=== PATIENT | female | born 1940 | race Caucasian/White ===

== ENCOUNTER 2019-06-15 12:27 | Observation (INO) | payer OTHER ==
[2019-06-15] MEDS ORDERED: NA CHLORIDE 0.9% 1,000 ML ONE (16:01)
[2019-06-15 16:54] LABS: Protime INR 1.19
[2019-06-15 16:55] LABS: Absolute Lymphocytes (CBC) 1.1 K/uL (0.7-4.9); Basophils % 0.4 % (0-1.3); Hematocrit 39.5 % (36.0-45.0); Lymphocytes % 14.1 % (15.3-44.8); MPV 8.3 fL (7.6-11.3); RBC Red Blood Cell Count 4.55 M/uL (3.86-4.86)
--- NOTE | 2019-06-15 16:56 | EKG ---
Test Date: 2019-06-15 Test Time: 16:11:09 [place]: RAMON MEASUREMENT RESULTS: Intervals: Rate: 95 PA: QRSD: 134 QT: 362 QTc: 454 [place]: P: PA: QRS: 28 T: -34 INTERPRETIVE STATEMENTS: Atrial fibrillation with premature ventricular or aberrantly conducted complexes Right bundle branch block T wave abnormality, consider inferior ischemia or digitalis effect Abnormal ECG No previous ECG available for comparison Electronically Signed On 06-15-19 16:55:22 CDT by Nahum Marcial
--- NOTE | 2019-06-15 17:01 | RAD REPORT ---
EXAM DESCRIPTION: RAD - Chest Single View - 06/15/2019 4:46 pm CLINICAL HISTORY: COUGH Chest pain. COMPARISON: No comparisons FINDINGS: Portable technique limits examination quality. The lungs are grossly clear. The heart is upper limit of normal in size. No displaced fractures.Aorti c atherosclerosis. IMPRESSION: No acute intrathoracic process suspected.
[2019-06-15 17:09] LABS: ALT/SGPT 18 U/L (12-78); AST/SGOT 22 U/L (15-37); Albumin 2.9 g/dL (3.4-5.0); Alkaline Phosphatase 146 U/L (45-117); BUN Blood Urea Nitrogen 91 mg/dL (7-18); Bicarbonate 22 mmol/L (21-32); Bilirubin Direct 0.3 mg/dL (0-0.2); Bilirubin Total 0.7 mg/dL (0.2-1.0); Glucose Level 84 mg/dL (74-106); Lipase 319 U/L (73-393); Magnesium 2.6 mg/dL (1.8-2.4); NT PRO-BNP 3528 pg/mL (<450); Potassium 3.5 mmol/L (3.5-5.1); Protein, Total 9.1 g/dL (6.4-8.2); Sodium Level 128 mmol/L (136-145); Troponin (Emerg Dept Use Only) < 0.02 ng/mL (0.0-0.045)
--- NOTE | 2019-06-15 17:30 | EDPHYS ---
Physician Documentation [facility] Name: Mica Christopher Age: 79 yrs Sex: Female : 1940 Arrival Date: 06/15/2019 Time: 12:30 Bed 4 Private MD: ED Physician Jose Luis Ying HPI: 06/15 17:17 This 79 yrs old Female presents to ER via Wheelchair with complaints of raymundo Diarrhea, General Weakness. 17:17 The patient presents to the emergency department with nausea, vomiting, that is raymundo intermittent, abdominal pain. Onset: The symptoms/episode began/occurred 1 week(s) ago. Possible causes: unknown. The symptoms are aggravated by nothing. The symptoms are alleviated by nothing. Associated signs and symptoms: Pertinent positives: nausea, vomiting. Severity of symptoms: At their worst the symptoms were moderate in the emergency department the symptoms are unchanged. Historical: - Allergies: 12:58 PENICILLINS; sv - PMHx: 12:58 COPD; sv - Immunization history:: Adult Immunizations. - Social history:: Smoking status: . - Ebola Screening: : Patient denies travel to an Ebola-affected area in the 21 days before illness onset. - Family history:: not pertinent. ROS: 17:17 Constitutional: Negative for fever, chills, and weight loss, Eyes: Negative for injury, raymundo pain, redness, and discharge, ENT: Negative for injury, pain, and discharge, Neck: Negative for injury, pain, and swelling, Cardiovascular: Negative for chest pain, palpitations, and edema, Respiratory: Negative for shortness of breath, cough, wheezing, and pleuritic chest pain, Back: Negative for injury and pain, : Negative for injury, bleeding, discharge, and swelling, MS/Extremity: Negative for injury and deformity, Skin: Negative for injury, rash, and discoloration, Psych: Negative for depression, anxiety, suicide ideation, homicidal ideation, and hallucinations, Allergy/Immunology: Negative for hives, rash, and allergies, Endocrine: Negative for neck swelling, polydipsia, polyuria, polyphagia, and marked weight changes, Hematologic/Lymphatic: Negative for swollen nodes, abnormal bleeding, and unusual bruising. 17:17 Abdomen/GI: Positive for abdominal pain, nausea, vomiting, diarrhea. 17:17 Neuro: Positive for weakness. Exam: 17:17 Constitutional: This is a well developed, well nourished patient who is awake, alert, raymundo and in no acute distress. Head/Face: Normocephalic, atraumatic. Eyes: Pupils equal round and reactive to light, extra-ocular motions intact. Lids and lashes normal. Conjunctiva and sclera are non-icteric and not injected. Cornea within normal limits. Periorbital areas with no swelling, redness, or edema. ENT: Nares patent. No nasal discharge, no septal abnormalities noted. Tympanic membranes are normal and external auditory canals are clear. Oropharynx with no redness, swelling, or masses, exudates, or evidence of obstruction, uvula midline. Mucous membranes moist. Neck: Trachea midline, no thyromegaly or masses palpated, and no cervical lymphadenopathy. Supple, full range of motion without nuchal rigidity, or vertebral point tenderness. No Meningismus. Chest/axilla: Normal chest wall appearance and motion. Nontender with no deformity. No lesions are appreciated. Cardiovascular: Regular rate and rhythm with a normal S1 and S2. No gallops, murmurs, or rubs. Normal PMI, no JVD. No pulse deficits. Respiratory: Lungs have equal breath sounds bilaterally, clear to auscultation and percussion. No rales, rhonchi or wheezes noted. No increased work of breathing, no retractions or nasal flaring. Back: No spinal tenderness. No costovertebral tenderness. Full range of motion. Female : Normal external genitalia. Skin: Warm, dry with normal turgor. Normal color with no rashes, no lesions, and no evidence of cellulitis. MS/ Extremity: Pulses equal, no cyanosis. Neurovascular intact. Full, normal range of motion. Psych: Awake, alert, with orientation to person, place and time. Behavior, mood, and affect are within normal limits. 17:17 Abdomen/GI: Inspection: abdomen appears normal, Bowel sounds: normal, Palpation: mild abdominal tenderness, in all quadrants, Liver: no appreciated palpable abnormalities, Hernia: not appreciated. Vital Signs: 12:58 BP 102 / 85; Pulse 106; Resp 22; Temp 97.6; Pulse Ox 94% on 2 lpm NC; Weight 71.21 kg; sv Height 5 ft. 0 in. (152.40 cm); 16:27 BP 101 / 71; Pulse 87; Resp 17; Pulse Ox 94% on 2 lpm NC; tw2 17:27 BP 109 / 82; Pulse 87; Resp 17; Pulse Ox 100% on R/A; tw2 18:26 BP 107 / 67; Pulse 88; Resp 16; Pulse Ox 100% ; bp 19:55 BP 104 / 59; Pulse 80; Resp 18; Temp 97.2(TE); Pulse Ox 97% on R/A; ea 12:58 Body Mass Index 30.66 (71.21 kg, 152.40 cm) sv MDM: 15:48 Patient medically screened. [facility] 17:23 Data reviewed: vital signs, nurses notes, lab test result(s), EKG, radiologic studies, raymundo plain films. 06/15 15:50 Order name: Basic Metabolic Panel; Complete Time: 17:20 [facility] 06/15 15:50 Order name: CBC with Diff; Complete Time: 19:29 [facility] 06/15 15:50 Order name: LFT's; Complete Time: 17:20 [facility] 06/15 15:50 Order name: Magnesium; Complete Time: 17:20 [facility] 06/15 15:50 Order name: NT PRO-BNP; Complete Time: 17:20 [facility] 06/15 15:50 Order name: PT-INR; Complete Time: 17:20 [facility] 06/15 15:50 Order name: Troponin (emerg Dept Use Only); Complete Time: 17:20 [facility] 06/15 15:50 Order name: Blood Culture Adult (2) [facility] 06/15 15:50 Order name: Lipase; Complete Time: 17:20 [facility] 06/15 15:50 Order name: CDIFF [facility] 06/15 15:50 Order name: Fecal Leukocyte Stain [facility] 06/15 15:50 Order name: Stool Culture [facility] 06/15 15:50 Order name: Urine Culture [facility] 06/15 16:13 Order name: TSH; Complete Time: 17:20 [facility] 06/15 15:50 Order name: XRAY Chest (1 view); Complete Time: 19:29 [facility] 06/15 15:50 Order name: EKG; Complete Time: 15:53 [facility] 06/15 15:50 Order name: Cardiac monitoring; Complete Time: 15:59 [facility] 06/15 15:50 Order name: EKG - Nurse/Tech; Complete Time: 15:59 [facility] 06/15 15:50 Order name: IV Saline Lock; Complete Time: 16:27 [facility] 06/15 15:50 Order name: Labs collected and sent; Complete Time: 16:27 [facility] 06/15 15:50 Order name: O2 Per Protocol; Complete Time: 15:59 [facility] 06/15 15:50 Order name: O2 Sat Monitoring; Complete Time: 15:59 [facility] 06/15 15:50 Order name: Urine Dipstick-Ancillary (obtain specimen); Complete Time: 17:29 [facility] 06/15 16:40 Order name: Urine Dipstick--Ancillary (enter results); Complete Time: 19:29 md 06/15 17:27 Order name: CT Stone Protocol; Complete Time: 19:29 [facility] 06/15 17:27 Order name: Digoxin; Complete Time: 19:29 [facility] Administered Medications: 16:27 Drug: NS 0.9% 500 ml Route: IV; Rate: bolus; Site: right antecubital; bp 18:26 Follow up: IV Status: Completed infusion; IV Intake: 500ml bp 16:27 Drug: NS 0.9% 1000 ml Route: IV; Rate: 125 ml/hr; Site: right antecubital; bp 20:39 Follow up: Response: No adverse reaction; IV Status: Infusion continued upon admission; ea IV Intake: 300ml 17:32 Drug: NS 0.9% 500 ml Route: IV; Rate: bolus; Site: right antecubital; tw2 18:26 Follow up: IV Status: Completed infusion; IV Intake: 500ml bp Disposition: 06/15/19 17:29 Hospitalization ordered by Ruth Delgadillo for Inpatient Admission. Preliminary diagnosis are Dehydration, Hypotension, Chronic obstructive pulmonary disease, unspecified, Diarrhea, unspecified, Urinary tract infection, site not specified, Weakness. - Bed requested for Telemetry/MedSurg (Inpatient). - Status is Inpatient Admission. ea - Condition is Fair. - Problem is new. - Symptoms have improved. UTI on Admission? Yes Signatures: Dispatcher [employer] Jennifer Terrazas RN RN sv Webb, Martha RN Jose Luis Jennings MD MD cha Wise, Tara, RN RN tw2 Terrie Posey RN RN ea Peltier, Brian, RN RN bp Corrections: (The following items were deleted from the chart) 17:31 17:29 Hospitalization Ordered by Ruth Delgadillo MD for Inpatient Admission. Preliminary raymundo diagnosis is Dehydration; Hypotension; Chronic obstructive pulmonary disease, unspecified; Diarrhea, unspecified; Urinary tract infection, site not specified. Bed requested for Telemetry/MedSurg (Inpatient). Status is Inpatient Admission. Condition is Fair. Problem is new. Symptoms have improved. UTI on Admission? Yes. [facility] 19:15 17:31 06/15/2019 17:29 Hospitalization Ordered by Ruth Delgadillo MD for Inpatient mw Admission. Preliminary diagnosis is Dehydration; Hypotension; Chronic obstructive pulmonary disease, unspecified; Diarrhea, unspecified; Urinary tract infection, site not specified; Weakness. Bed requested for Telemetry/MedSurg (Inpatient). Status is Inpatient Admission. Condition is Fair. Problem is new. Symptoms have improved. UTI on Admission? Yes. [facility] 20:39 19:15 06/15/2019 17:29 Hospitalization Ordered by Ruth Delgadillo MD for Inpatient ea Admission. Preliminary diagnosis is Dehydration; Hypotension; Chronic obstructive pulmonary disease, unspecified; Diarrhea, unspecified; Urinary tract infection, site not specified; Weakness. Bed requested for Telemetry/MedSurg (Inpatient). Status is Inpatient Admission. Condition is Fair. Problem is new. Symptoms have improved. UTI on Admission? Yes. mw
--- NOTE | 2019-06-15 17:30 | ER ---
Nurse's Notes [facility] Name: Mica Christopher Age: 79 yrs Sex: Female : 1940 Arrival Date: 06/15/2019 Time: 12:30 Bed 4 Private MD: Diagnosis: Dehydration;Hypotension;Chronic obstructive pulmonary disease, unspecified;Diarrhea, unspecified;Urinary tract infection, site not specified;Weakness Presentation: 06/15 12:56 Presenting complaint: Sister states diarrhea, generalized weakness, decreased appetite sv x 1 week. Transition of care: patient was not received from another setting of care. Onset of symptoms was May 2019. Risk Assessment: Do you want to hurt yourself or someone else? Patient reports no desire to harm self or others. Care prior to arrival: None. 12:56 Method Of Arrival: Wheelchair sv 12:56 Acuity: BRITTNEY 3 sv 16:28 Initial Sepsis Screen: Does the patient meet any 2 criteria? RR > 20 per min. HR > 90 tw2 bpm. Does the patient have a suspected source of infection? Yes:. Triage Assessment: 12:56 General: Appears in no apparent distress. uncomfortable, Behavior is calm, cooperative, sv appropriate for age. Neuro: Level of Consciousness is awake, alert, obeys commands. Neuro: Reports weakness. Respiratory: Respiratory effort is even, unlabored, Respiratory pattern is regular, symmetrical. GI: Reports diarrhea. Historical: - Allergies: 12:58 PENICILLINS; sv - PMHx: 12:58 COPD; sv - Immunization history:: Adult Immunizations. - Social history:: Smoking status: . - Ebola Screening: : Patient denies travel to an Ebola-affected area in the 21 days before illness onset. - Family history:: not pertinent. Screenin:22 Abuse screen: Denies threats or abuse. Denies injuries from another. Nutritional bp screening: No deficits noted. Tuberculosis screening: No symptoms or risk factors identified. Fall Risk None identified. Assessment: 15:21 General: Appears in no apparent distress. comfortable, Behavior is calm, cooperative, bp appropriate for age. Pain: Denies pain. Neuro: No deficits noted. Cardiovascular: No deficits noted. Respiratory: No deficits noted. GI: No signs and/or symptoms were reported involving the gastrointestinal system. : No signs and/or symptoms were reported regarding the genitourinary system. EENT: No deficits noted. Derm: No deficits noted. Musculoskeletal: No deficits noted. 16:27 Reassessment: Patient appears in no apparent distress at this time. No changes from tw2 previously documented assessment. Patient and/or family updated on plan of care and expected duration. Pain level reassessed. Patient is alert, oriented x 3, equal unlabored respirations, skin warm/dry/pink. 17:27 Reassessment: Patient appears in no apparent distress at this time. No changes from tw2 previously documented assessment. Patient and/or family updated on plan of care and expected duration. Pain level reassessed. Patient is alert, oriented x 3, equal unlabored respirations, skin warm/dry/pink. 18:26 Reassessment: ALL CURRENT ORDERS COMPLETED, ADMIT IN PROCESS. bp 19:15 General: Appears in no apparent distress. Behavior is calm, cooperative, appropriate ea for age. Pain: Denies pain. Neuro: Level of Consciousness is awake, alert, obeys commands, Oriented to person, place, situation. Cardiovascular: Patient's skin is warm and dry. Respiratory: Airway is patent Respiratory effort is even, unlabored, Respiratory pattern is regular, symmetrical. Derm: Skin is dry, Skin is pale, Skin temperature is warm. 20:27 Reassessment: report called to [facility] for room 207. bb 20:35 Reassessment: Patient and/or family updated on plan of care and expected duration. Pain ea level reassessed. Patient is alert, oriented x 3, equal unlabored respirations, skin warm/dry/pink. Pt admitted to second floor, taken via stretcher pt tolerating well. Vital Signs: 12:58 BP 102 / 85; Pulse 106; Resp 22; Temp 97.6; Pulse Ox 94% on 2 lpm NC; Weight 71.21 kg; sv Height 5 ft. 0 in. (152.40 cm); 16:27 BP 101 / 71; Pulse 87; Resp 17; Pulse Ox 94% on 2 lpm NC; tw2 17:27 BP 109 / 82; Pulse 87; Resp 17; Pulse Ox 100% on R/A; tw2 18:26 BP 107 / 67; Pulse 88; Resp 16; Pulse Ox 100% ; bp 19:55 BP 104 / 59; Pulse 80; Resp 18; Temp 97.2(TE); Pulse Ox 97% on R/A; ea 12:58 Body Mass Index 30.66 (71.21 kg, 152.40 cm) sv ED Course: 12:30 Patient arrived in ED. as 12:57 Triage completed. sv 12:58 Arm band placed on. sv 15:17 Anil Strickland, RN is Primary Nurse. bp 15:22 Patient has correct armband on for positive identification. Placed in gown. Bed in low bp position. Call light in reach. Side rails up X2. 15:48 Jose Luis Ying MD is Attending Physician. raymundo 16:14 EKG done, by nuclear medicine tech. reviewed by Jose Luis Ying MD. sm3 16:43 Urine collected: bedpan, yellow \T\ cloudy. dh3 16:48 XRAY Chest (1 view) In Process Unspecified. EDMS 17:28 Ruth Delgadillo MD is Hospitalizing Provider. raymundo 17:48 CT Stone Protocol In Process Unspecified. EDMS 19:00 Report given to ARIANE Avery and ARIANE Hobbs. tw2 19:54 No provider procedures requiring assistance completed. Patient admitted, IV remains in ea place. Administered Medications: 16:27 Drug: NS 0.9% 500 ml Route: IV; Rate: bolus; Site: right antecubital; bp 18:26 Follow up: IV Status: Completed infusion; IV Intake: 500ml bp 16:27 Drug: NS 0.9% 1000 ml Route: IV; Rate: 125 ml/hr; Site: right antecubital; bp 20:39 Follow up: Response: No adverse reaction; IV Status: Infusion continued upon admission; ea IV Intake: 300ml 17:32 Drug: NS 0.9% 500 ml Route: IV; Rate: bolus; Site: right antecubital; tw2 18:26 Follow up: IV Status: Completed infusion; IV Intake: 500ml bp Intake: 18:26 IV: 500ml; Total: 500ml. bp 18:26 IV: 500ml; Total: 1000ml. bp 20:39 IV: 300ml; Total: 1300ml. ea Outcome: 17:29 Decision to Hospitalize by Provider. raymundo 19:54 Instructed on the need for admit. ea 20:04 Admitted to Tele via stretcher, room 207, with chart, Report called to Allison THAKKAR bb 20:04 Condition: stable 20:39 Patient left the ED. ea Signatures: Dispatcher [employer] Jennifer Terrazas, RN RN Jose Luis Mcgrath MD MD cha Martinez, Amelia as Ballard, Brenda RN RN Phyllis Ortega RN RN [facility] Amparo Arzatenna [facility] Terrie Posey RN Anil Marx ea, RN Anabelle Crodova 3 Corrections: (The following items were deleted from the chart) 18: 18:26 Reassessment: ALL CURRENT ORDERS COMPLETED, RESULTS PENDING FOR DISPO bp bp : 20:04 Reassessment: report called to Terrie THAKKAR for room 207 bb bb 20:28 20:04 Admitted to Tele via stretcher, room 207, with chart, Report called to Terrie THAKKAR bbbb
[2019-06-15] MEDS ORDERED: NA CHLORIDE 0.9% 500 ML ONE (17:33)
[2019-06-15 17:49] LABS: Urine Blood TRACE (NEG); Urine Glucose NEGATIVE (NEG); Urine Protein 1+ (NEG); Urine Specific Gravity 1.015 (1.005-1.030)
--- NOTE | 2019-06-15 18:06 | RAD REPORT ---
EXAM DESCRIPTION: CT - Stone Protocol - 06/15/2019 5:45 pm CLINICAL HISTORY: Flank pain. ABD PAIN COMPARISON: No comparisons TECHNIQUE: Axial images were obtained without oral or IV contrast. Lack of contrast limits solid org an and vascular assessment. The [id number] spans the entirety of the system partially obscuring uppermost abdomen and lung bases. Coronal reformatted images were obtained and reviewed. All CT scans are performed using dose optimization technique as appropriate and may include automated exposure control or mA/KV adjustment according to patient size. FINDINGS: The lower lung colon are clear. Small hiatal hernia. Cholecystectomy clips. Liver has a nodular contour compatible with mild cirrhosis.The liver appears normal in size. Pancreat ic parenchyma is incompletely assessed particularly in the region pancreatic head due to lack contras t. The adrenal glands are normal. No pathologic lymphadenopathy in the abdomen or pelvis. No urinary tract stones or obstructive uropathy. Infrarenal abdominal aortic aneurysm is present louisa uring 4.9 cm in maximum dimension. No bowel obstruction, free air, free fluid or abscess. The appendix is not identified as a discrete s tructure, however, no secondary findings of appendicitis are identified. Prominent degenerative change in the lumbar spine. IMPRESSION: No urinary tract stones or obstructive uropathy. Liver cirrhosis. 4.9 cm infrarenal abdominal aortic aneurysm.
--- NOTE | 2019-06-15 19:56 | P.HP ---
Certification for Inpatient Patient admitted to: Observation With expected LOS: <2 Midnights Patient will require the following post-hospital care: Home Health Services Practitioner: I am a practitioner with admitting privileges, knowledge of patient current condition, hospital course, and medical plan of care. Services: Services provided to patient in accordance with Admission requirements found in Title 42 Section 412.3 of the Code of Federal Regulations Patient History Date of Service: 06/15/19 Primary Care Provider: Roddy Lopez NP Reason for admission: Diarrhea History of Present Illness: 79-year-old female presented to the emergency room with worsening diarrhea. Patient came to the ER with worsening diarrhea. She reports that this started about 1 week ago. Since that time she has not been able to eat appropriately. She has had poor oral intake. She denies any fever, chills. She denies any abdominal pain. She has not been on any recent antibiotics. Patient feels dehydrated. Patient with underlying COPD, hypertension, chronic atrial fibrillation not on chronic anti coagulation therapy and tobacco abuse. Patient came to the ER for further evaluation. In the ER patient evaluated. Blood pressure appears stable. White count 7.7, hemoglobin 14.3. Platelet count of 253. Sodium 128, potassium 3.5, BUN of 91, creatinine 2.03 with a GFR of 24. Glucose 84. Magnesium 2.6. Troponin unremarkable. BNP 3528. Tsh within normal range. Lipase unremarkable. Chest x -ray unremarkable. Urinalysis shows evidence of UTI. CT abdomen shows liver cirrhosis with 4.9 infrarenal aortic aneurysm. Patient given IV fluids in the emergency room. Patient admitted for further evaluation and treatment. When I saw the patient ER, family at bedside. Patient appears improved. Patient denies any fever, chills. No significant abdominal pain noted. No prior lab for comparison noted. Patient reports diarrhea was not noted today. Home medications list reviewed: Yes - Past Medical/Surgical History Diabetic: No -: Hypertension -: COPD -: Chronic atrial fibrillation not on chronic anti coagulation therapy -: Tobacco abuse -: Hysterectomy -: Cholecystectomy -: Carpal tunnel Psychosocial/ Personal History: Patient lives with her who has dementia. Patient recently moved from [place] to be closer to family. - Family History Family History: Reviewed- Non-Contributory - Social History Smoking Status: Heavy Tobacco smoker (>10 cigarettes/day) Counseled patient to stop smoking for: less than 10 minutes Smoking therapy provided: Yes Patient receptive to therapy: No Alcohol use: No CD- Drugs: No Caffeine use: No Place of Residence: Home Review of Systems General: Weakness, Malaise, As per HPI Eyes: Unremarkable ENT: Unremarkable Respiratory: Unremarkable Cardiovascular: Unremarkable Gastrointestinal: Diarrhea, As per HPI Genitourinary: Unremarkable Musculoskeletal: Unremarkable Integumentary: Unremarkable Neurological: Unremarkable Lymphatics: Unremarkable Physical Examination - Physical Exam General: Alert, In no apparent distress, Oriented x3, Cooperative HEENT: Atraumatic, Normocephalic, Other (Dry mucous membranes) Neck: Supple, No Thyromegaly Respiratory: Clear to auscultation bilaterally, Normal air movement Cardiovascular: Irregular heart rate/rhythm (Atrial fibrillation, rate controlled) Gastrointestinal: Normal bowel sounds, Soft and benign, Non-distended, No tenderness, No masses, No rebound, No guarding Musculoskeletal: No erythema, No tenderness, No warmth Integumentary: No tenderness/swelling, No erythema, No warmth, No cyanosis, Other (Dry skin noted) Neurological: Normal speech, Normal strength at 5/5 x4 extr, Normal tone, Normal affect - Studies Laboratory Data (last 24 hrs) 06/15/19 16:20: PT 13.9 H, INR 1.19 06/15/19 16:20: WBC 7.7, Hgb 14.3, Hct 39.5, Plt Count 253 06/15/19 16:20: Sodium 128 L, Potassium 3.5, BUN 91 H, Creatinine 2.03 H, Glucose 84, Magnesium 2.6 H, Total Bilirubin 0.7, AST 22, ALT 18, Alkaline Phosphatase 146 H, Lipase 319 Assessment and Plan - Plan Impression: Diarrhea with acute renal injury likely with chronic disease UTI Hypertension Chronic atrial fibrillation not on chronic anti coagulation therapy COPD Tobacco abuse Plan: Diarrhea with acute renal injury likely with chronic disease: Patient will be admitted for further evaluation and treatment. Patient with diarrhea likely related to viral infection. Patient reports no more diarrhea this afternoon. Will need to monitor this closely. Will send stool for O&P and culture. Will also monitor for C diff colitis. Encourage oral intake. Continue IV fluids. Will monitor electrolytes and replace appropriately. Will order physical therapy to assess ambulation tomorrow. Will check renal ultrasound to further evaluate her underlying acute renal injury. Patient likely with underlying chronic renal disease. Will consult nephrology for further recommendation. Patient will be seen by the daytime hospitalist tomorrow. They will continue her care. Anticipate discharge in the next 1-2 days with clinical improvement. UTI: Will send urine for culture. Will start Rocephin. Await urine culture results. Hypertension: Restart metoprolol. Will monitor closely and adjust. Chronic atrial fibrillation not on chronic anti coagulation therapy: Continue with metoprolol. Will check echocardiogram. Will consult cardiology to further evaluate her atrial fibrillation. Patient not on chronic anti coagulation therapy likely related to increased fall risk and bleeding. Will provide DVT prophylaxis-Lovenox. COPD: Will provide COPD medication. Maintain sats above 94%. Tobacco abuse: Will provide Nicoderm patch. Tobacco cessation education provided. Discharge Plan: Home Plan to discharge in: 48 Hours - Advance Directives Does patient have a Living Will: No Does patient have a Durable POA for Healthcare: No - Code Status/Comfort Care Code Status Assessed: Yes (Patient is full code) Time Spent Managing Pts Care (In Minutes): 55
[2019-06-15] MEDS ORDERED: ALBUTEROL 2.5 MG/3 ML NEB SOL NEB PRN (21:45)
[2019-06-15] MEDS ORDERED: ACETAMINOPHEN 500 MG TAB PO PRN (21:45)
[2019-06-15] MEDS ORDERED: IPRATROPIUM BROM 0.5MG/2.5ML NEB PRN (21:45)
[2019-06-15] MEDS ORDERED: ONDANSETRON 4 MG/2 ML VIAL IV PRN (21:45)
[2019-06-15 22:31] VITALS: BMI 26.6
[2019-06-15] MEDS: NA CHLORIDE 0.9% 1,000 ML IV SCH (22:38)
[2019-06-15] MEDS ORDERED: LORAZEPAM 0.5 MG TABLET PO PRN (23:02)
--- NOTE | 2019-06-16 00:27 | P.PN ---
Subjective Date of Service: 06/16/19 Primary Care Provider: oRddy Lopez NP Chief Complaint: Diarrhea Subjective: Other (Patient doing well this morning.) Physical Examination - Vital Signs Temperature: 97.7 F Blood Pressure: 130/90 Pulse: 98 Respirations: 20 Pulse Ox (%): 96 - Physical Exam General: Alert, In no apparent distress, Oriented x3, Cooperative HEENT: Atraumatic Neck: Supple Respiratory: Clear to auscultation bilaterally, Normal air movement Cardiovascular: Normal pulses, Regular rate/rhythm Gastrointestinal: Normal bowel sounds, Soft and benign, Non-distended, No tenderness, No masses, No rebound, No guarding - Studies Laboratory Data (last 24 hrs) 06/15/19 16:20: PT 13.9 H, INR 1.19 06/15/19 16:20: WBC 7.7, Hgb 14.3, Hct 39.5, Plt Count 253 06/15/19 16:20: Sodium 128 L, Potassium 3.5, BUN 91 H, Creatinine 2.03 H, Glucose 84, Magnesium 2.6 H, Total Bilirubin 0.7, AST 22, ALT 18, Alkaline Phosphatase 146 H, Lipase 319 Assessment & Plan Discharge Plan: Home Plan to discharge in: 24 Hours Physician Review Additional Text: Impression: Diarrhea with acute renal injury likely with chronic disease UTI Hypertension Chronic atrial fibrillation not on chronic anti coagulation therapy COPD Tobacco abuse Plan: Diarrhea with acute renal injury likely with chronic disease: Continue with IV fluid hydration. Diarrhea likely viral related. Stool cultures obtained. Recheck lab this morning. If lab significantly improved consider discharge later today. Will have physical therapy assess ambulation. Will order renal ultrasound to evaluate possible underlying chronic renal disease. Nephrology also consulted to further evaluate. Possible discharge in the next 24 hr with clinical improvement. Daytime hospitalist team will continue her care. UTI: Urine culture sent for evaluation. Continue Rocephin. Await urine culture results. Hypertension: Continue home medication metoprolol. Will monitor closely and adjust. Chronic atrial fibrillation not on chronic anti coagulation therapy: Continue with metoprolol. Echocardiogram ordered. Consider cardiology evaluation as an inpatient versus outpatient to further evaluate her atrial fibrillation. Patient not on chronic anti coagulation therapy likely related to increased fall risk and bleeding. Will provide DVT prophylaxis-Lovenox. COPD: Will provide COPD medication. Maintain sats above 94%. Tobacco abuse: Will provide Nicoderm patch. Tobacco cessation education provided. Time Spent Managing Pts Care (In Minutes): 55
[2019-06-16 03:12] VITALS: O2SAT 98
[2019-06-16 05:41] LABS: Absolute Lymphocytes (CBC) 0.8 K/uL (0.7-4.9); Basophils % 0.4 % (0-1.3); Hematocrit 36.4 % (36.0-45.0); Lymphocytes % 13.1 % (15.3-44.8); MPV 7.9 fL (7.6-11.3)
[2019-06-16] MEDS ORDERED: METOPROLOL TAR 25 MG TAB PO SCH (06:00)
[2019-06-16 06:04] LABS: Magnesium 2.1 mg/dL (1.8-2.4); Potassium 3.6 mmol/L (3.5-5.1)
[2019-06-16] MEDS ORDERED: PANTOPRAZOLE 40MG TABLET PO SCH (06:30)
[2019-06-16] MEDS: NA CHLORIDE 0.9% 1,000 ML IV SCH (07:22)
[2019-06-16] MEDS: ARFORMOTEROL TARTRATE 15 MCG/2 ML VIAL.NEB NEB SCH ×2 (08:00)
[2019-06-16] MEDS ORDERED: CEFTRIAXONE 1 GM/NS 50 ML 1 GM/50 ML BAG IV SCH (09:00)
[2019-06-16] MEDS ORDERED: ASPIRIN EC 81 MG TAB PO SCH (09:00)
[2019-06-16] MEDS ORDERED: CEFTRIAXONE/SWI 1gm 1 GM/10 ML SYR IV SCH (09:00)
[2019-06-16] MEDS ORDERED: POTASSIUM CL SA 10 MEQ TAB PO ONE (09:00)
[2019-06-16] MEDS ORDERED: ENOXAPARIN 30 MG/0.3 ML SQ SCH (09:00)
[2019-06-16] MEDS ORDERED: NICOTINE 21 MG/PAT TD SCH (09:00)
--- NOTE | 2019-06-16 11:19 | RAD REPORT ---
EXAM DESCRIPTION: US - Renal Ultrasound-Complete - 06/16/2019 10:25 am CLINICAL HISTORY: . Acute renal injury COMPARISON: None. FINDINGS: The right kidney measures 8 cm with a normal echotexture. The left kidney measures 9 cm with a normal echotexture. Hydronephrosis is not seen. No gross abnormality of the bladder Evaluation was limited secondary to difficulty with patient positioning. IMPRESSION: No gross abnormality displayed
[2019-06-16 14:14] VITALS: BP 115/50; TEMP 98.7
--- NOTE | 2019-06-16 14:39 | P.CNS ---
Date of Consult: 06/16/19 Reason for Consult: MEHREEN , hyponatremia Primary Care Provider: Roddy Lopez NP Chief Complaint: Diarrhea History of Present Illness: A 79 Y/o owman with PMHX of HTN, COPD, Afib pt was sen for diarrhea Fount to have MEHREEN and hyponatremia , which improved on IVF Symptoms now resolved No chest pain, palpitation ,nausea or vomiting Allergies Penicillins Allergy (Verified 06/15/19 21:04) Rash - Past Medical/Surgical History Diabetic: No -: Hypertension -: COPD -: Chronic atrial fibrillation not on chronic anti coagulation therapy -: Tobacco abuse -: Hysterectomy -: Cholecystectomy -: Carpal tunnel Psychosocial/ Personal History: Patient lives with her who has dementia. Patient recently moved from [place] to be closer to family. - Family History Mother Medical History: Cancer Notes: breast - Social History Alcohol use: No CD- Drugs: No Caffeine use: Yes Place of Residence: Home Physical Examination Temp Pulse Resp BP Pulse Ox 98.7 F 74 20 115/50 L 100 06/16/19 12:00 06/16/19 12:00 06/16/19 12:00 06/16/19 12:00 06/16/19 12:00 General: Alert, In no apparent distress HEENT: Atraumatic Neck: Supple, Without JVD or thyroid abnormality Respiratory: Clear to auscultation bilaterally Cardiovascular: No edema, Regular rate/rhythm, Normal S1 S2, No gallops, No rubs , No murmurs Gastrointestinal: Normal bowel sounds, Soft and benign Laboratory Data (last 24 hrs) 06/15/19 16:20: PT 13.9 H, INR 1.19 06/15/19 16:20: WBC 7.7, Hgb 14.3, Hct 39.5, Plt Count 253 06/15/19 16:20: Sodium 128 L, Potassium 3.5, BUN 91 H, Creatinine 2.03 H, Glucose 84, Magnesium 2.6 H, Total Bilirubin 0.7, AST 22, ALT 18, Alkaline Phosphatase 146 H, Lipase 319 - Problems (1) MEHREEN (acute kidney injury) Current Visit: Yes Status: Acute Conclusions/Impression: MEHREEN Due to diarrhea and dehydration resolved hyponatremia Depletional improved on IVF Diarrhea resolved now UTI cont Abx COPD cont inhalers pt is cleared for discharge from nephrology point of view, to follow with nephrology clinic in 2-3 wks and need to preat labs in 1-2 wks
--- NOTE | 2019-06-16 14:51 | P.SSS ---
Patient History Date of Service: 06/16/19 Primary Care Provider: Roddy Lopez NP Reason for admission: Diarrhea History of Present Illness: 79-year-old female presented to the emergency room with worsening diarrhea. Patient came to the ER with worsening diarrhea. She reports that this started about 1 week ago. Since that time she has not been able to eat appropriately. She has had poor oral intake. She denies any fever, chills. She denies any abdominal pain. She has not been on any recent antibiotics. Patient feels dehydrated. Patient with underlying COPD, hypertension, chronic atrial fibrillation not on chronic anti coagulation therapy and tobacco abuse. Patient came to the ER for further evaluation. In the ER patient evaluated. Blood pressure appears stable. White count 7.7, hemoglobin 14.3. Platelet count of 253. Sodium 128, potassium 3.5, BUN of 91, creatinine 2.03 with a GFR of 24. Glucose 84. Magnesium 2.6. Troponin unremarkable. BNP 3528. Tsh within normal range. Lipase unremarkable. Chest x -ray unremarkable. Urinalysis shows evidence of UTI. CT abdomen shows liver cirrhosis with 4.9 infrarenal aortic aneurysm. Patient given IV fluids in the emergency room. Patient admitted for further evaluation and treatment. When I saw the patient ER, family at bedside. Patient appears improved. Patient denies any fever, chills. No significant abdominal pain noted. No prior lab for comparison noted. Patient reports diarrhea was not noted today. Allergies Penicillins Allergy (Verified 06/15/19 21:04) Rash Home Medications: Amox/Clavulanate [Augmentin 500-125 mg Tab] 500 mg PO BID #14 tab 06/16/19 - Past Medical/Surgical History Has patient received pneumonia vaccine in the past: Yes Diabetic: No -: Hypertension -: COPD -: Chronic atrial fibrillation not on chronic anti coagulation therapy -: Tobacco abuse -: Hysterectomy -: Cholecystectomy -: Carpal tunnel Psychosocial/ Personal History: Patient lives with her who has dementia. Patient recently moved from [place] to be closer to family. - Family History Family History: Reviewed- Non-Contributory - Family History Mother -: Cancer Notes: breast - Social History Smoking Status: Heavy Tobacco smoker (>10 cigarettes/day) Alcohol use: No CD- Drugs: No Caffeine use: Yes Place of Residence: Home Review of Systems 10-point ROS is otherwise unremarkable Physical Examination - Vital Signs Temperature: 98.7 F Blood Pressure: 115/50 Pulse: 74 Respirations: 20 Pulse Ox (%): 100 - Physical Exam General: Alert, In no apparent distress HEENT: Atraumatic, PERRLA, Mucous membr. moist/pink, EOMI, Sclerae nonicteric Neck: Supple, 2+ carotid pulse no bruit, No LAD, Without JVD or thyroid abnormality Respiratory: Clear to auscultation bilaterally, Normal air movement Cardiovascular: Regular rate/rhythm, Normal S1 S2 Gastrointestinal: Normal bowel sounds, No tenderness Musculoskeletal: No tenderness Integumentary: No rashes Neurological: Normal gait, Normal speech, Normal strength at 5/5 x4 extr, Normal tone, Normal affect Lymphatics: No axilla or inguinal lymphadenopathy - Studies Laboratory Data (last 24 hrs) 06/15/19 16:20: PT 13.9 H, INR 1.19 06/15/19 16:20: WBC 7.7, Hgb 14.3, Hct 39.5, Plt Count 253 06/15/19 16:20: Sodium 128 L, Potassium 3.5, BUN 91 H, Creatinine 2.03 H, Glucose 84, Magnesium 2.6 H, Total Bilirubin 0.7, AST 22, ALT 18, Alkaline Phosphatase 146 H, Lipase 319 - Diagnosis (Problem(s)) (1) Diarrhea Current Visit: Yes Status: Resolved Qualifiers: Diarrhea type: presumed infectious Qualified Code(s): R19.7 - Diarrhea, unspecified (2) UTI (urinary tract infection) Current Visit: Yes Status: Acute Qualifiers: Urinary tract infection type: acute cystitis Hematuria presence: without hematuria Qualified Code(s): N30.00 - Acute cystitis without hematuria (3) MEHREEN (acute kidney injury) Current Visit: Yes Status: Resolved Treatment Summary: OVerall Patient remained stable while here in the hospital pt was admitted to the hospital after she presented to the ED with Diarrhea and was found to have MEHREEN and UTI. For Diarrhea which was most likely viral related. Stool cultures obtained. negative culture thus far. Diarrhea did resolve after 12 hrs of IV abx and fluids. For MEHREEN pt was placed on IV fluids and Had marked improvement in the Kidney function. Renal US wnl and Nephrology consulted And appreciated Reccs For UTI Urine culture was collected Remained negative thus far. Was started on IV Rocephin. And on DC due to nitrite + on UA pt was given a ppx of augmentin All other chronic condition remained stable - Disposition Condition: GOOD Diet: Regular Activity: Ad annemarie
--- NOTE | 2019-06-17 08:38 | ECHO ---
HEIGHT: 5 ft 0 in WEIGHT: 136 lb 6.4 oz DATE OF STUDY: 06/16/[address]: Ruth Delgadillo MD 2-DIMENSIONAL: YES M.MODE: YES DOPPLER: YES COLOR FLOW: YES TDS: NO PORTABLE: NO DEFINITY: NO BUBBLE STUDY: NO DIAGNOSIS: ATRIAL FIBRILLATION CARDIAC HISTORY: CATHERIZATION: NO SURGERY: NO PROSTHETIC VALVE: NO PACEMAKER: NO MEASUREMENTS (cm) DIASTOLIC (NORMALS) SYSTOLIC (NORMALS) IVSd 1.0 (0.6-1.2) LA Diam 4.4 (1.9-4.0) LVEF 55-60% LVIDd 4.7 (3.5-5.7) LVIDs 3.7 (2.0-3.5) %FS % LVPWd 1.2 (0.6-1.2) Ao Diam 2.8 (2.0-3.7) 2 DIMENSIONAL ASSESSMENT: RIGHT ATRIUM: NORMAL LEFT ATRIUM: DILATED RIGHT VENTRICLE: NORMAL LEFT VENTRICLE: NORMAL TRICUSPID VALVE: NORMAL MITRAL VALVE: MITRAL ANNULAR CALCIFICATION PULMONIC VALVE: NORMAL AORTIC VALVE: SCLEROSIS PERICARDIAL EFFUSION: NONE AORTIC ROOT: NORMAL LEFT VENTRICULAR WALL MOTION: NORMAL DOPPLER/COLOR FLOW: MILD TRICUSPID REGURGITATION. COMMENTS: TECHNICALLY DIFFICULT STUDY. NORMAL OVERALL LEFT VENTRICULAR EJECTION FRACTION 55-60%. MITRAL ANNULAR CALCIFICATION. AORTIC SCLEROSIS. MILD TRICUSPID REGURGITATION. NORMAL RIGHT VENTRICULAR SYSTOLIC PRESSURE. LEFT ATRIAL ENLARGEMENT. TECHNOLOGIST: Aamir MURRIETA
== END 2019-06-16 16:15 | disposition home health service (06) ==
LOC: ER 12:27 → ERHOLD 19:24 → 2ND 20:13
PROVIDERS: ADMIT Family Medicine; ATTEND Family Medicine
DX: R19.7 Diarrhea, unspecified (principal); N30.00 Acute cystitis without hematuria; N17.9 Acute kidney failure, unspecified; I10 Essential (primary) hypertension; J44.9 Chronic obstructive pulmonary disease, unspecified; I48.2 Chronic atrial fibrillation; E86.0 Dehydration; F17.210 Nicotine dependence, cigarettes, uncomplicated
CPT/HCPCS: 96361; 93005; 87040 ×3; 87088; 87045; 85025 ×2; 87086; 80048 ×2; 36415; 83735 ×2; 89055; 85610; 80162; 80076; 87046; 87493; 84443; 87077 ×3; 87186 ×3; 81003; 84484; 83690; 83880; 76377; 74176; 71045; 76770; 96360; 99285; J1650; J7605; J0696; J7030 ×2; G0378 ×3; 93306

== ENCOUNTER 2020-12-01 09:32 | Emergency (ER) | payer OTHER ==
--- OUTSIDE RECORDS SUMMARY | 2020-12-01 09:34 | XMS REPORT | Continuity of Care Document ---
:1940 Author Organization [facility] t Address [address] [place] [address] Dr. Villatoro [address] [place] [id number] Care Team Providers Name Role Phone Unavailable Unavailable Unavailable Problems This patient has no known problems. Allergies, Adverse Reactions, Alerts This patient has no known allergies or adverse reactions. Medications This patient has no known medications. Procedures This patient has no known procedures. Results This patient has no known results.
[2020-12-01 10:27] LABS: Absolute Lymphocytes (CBC) 1.7 K/uL (0.7-4.9); Basophils % 0.5 % (0-1.3); Hematocrit 35.5 % (36.0-45.0)
--- NOTE | 2020-12-01 10:42 | RAD REPORT ---
EXAM DESCRIPTION: RAD - Chest Single View - 12/01/2020 10:09 am CLINICAL HISTORY: COUGH COMPARISON: Two view chest November 2019 TECHNIQUE: AP portable chest image was obtained 12/01/2020 10:09 am . FINDINGS: Patient is in a kyphotic position which places the head and neck over the upper chest. The se portions of the chest are obscured. Lung colon show no peripheral mass or consolidation. The mildly prominent interstitial pattern match es comparison. Heart and vasculature are normal. No measurable pleural effusion and no pneumothorax. No acute bony abnormality seen. No acute aortic findings suspected. IMPRESSION: No acute cardiopulmonary process. The left apex and midline uppermost chest obscured by the patient's head and neck.
[2020-12-01 10:55] LABS: Urine Blood 1+ (NEG); Urine Glucose NEGATIVE (NEG); Urine Protein 2+ (NEG); Urine Specific Gravity 1.015 (1.005-1.030); Urine pH 5.5 (5.0-7.0)
[2020-12-01 10:58] LABS: Albumin 2.2 g/dL (3.4-5.0); Bilirubin Direct 0.4 mg/dL (0-0.2); Bilirubin Total 0.9 mg/dL (0.2-1.0); Magnesium 1.8 mg/dL (1.8-2.4); Potassium 3.7 mmol/L (3.5-5.1); Protein, Total 6.9 g/dL (6.4-8.2)
[2020-12-01 11:02] LABS: Platelet Estimate DECR
[2020-12-01 11:03] LABS: Anisocytosis 1+
[2020-12-01 11:07] LABS: Blood Morphology Comment NOTED (NOT SEEN)
--- NOTE | 2020-12-01 11:35 | ER ---
Nurse's Notes [facility] Name: Mica Christopher Age: 80 yrs Sex: Female : 1940 Arrival Date: 12/01/2020 Time: :33 Bed 4 Private MD: Diagnosis: Adult failure to thrive;Dehydration;Hypernatremia;Acute kidney failure;Urinary tract infection, site not specified Presentation: 12/01 09:33 Chief complaint: EMS states: [facility] staff stated that patient's blood ss pressure was 70/40 this morning. After moving her around a bit it was brought up to 96/70. Pt has no complaints at this time. It was reported that patient has had decreased appetite x 2 days. Coronavirus screen: Client denies travel out of the [place] in the last 14 days. Ebola Screen: Patient denies exposure to infectious person. Patient denies travel to an Ebola-affected area in the 21 days before illness onset. Initial Sepsis Screen: Does the patient meet any 2 criteria? No. Patient's initial sepsis screen is negative. Does the patient have a suspected source of infection? No. Patient's initial sepsis screen is negative. Risk Assessment: Do you want to hurt yourself or someone else? Patient reports no desire to harm self or others. Onset of symptoms is unknown. 09:33 Method Of Arrival: EMS: [facility] 09:33 Acuity: BRITTNEY 3 ss Historical: - Allergies: 09:37 PENICILLINS; ss - PMHx: 09:37 COPD; CVA; AAA; Cirrhosis; scoliosis; Hyperlipidemia; UTI; Depression; Insomnia; GERD; ss Atrial Fib; - Immunization history:: Adult Immunizations unknown. - Social history:: Smoking status: Patient denies any tobacco usage or history of. Screenin:33 Abuse screen: Denies threats or abuse. Denies injuries from another. Nutritional ss screening: No deficits noted. Tuberculosis screening: No symptoms or risk factors identified. Fall Risk No fall in past 12 months (0 pts). Secondary diagnosis (15 points) CVA, AMS. IV access (20 points). Ambulatory Aid- None/Bed Rest/Nurse Assist (0 pts). Gait- Normal/Bed Rest/Wheelchair (0 pts) Mental Status- Overestimates/Forgets Limitations (15 pts.). Assessment: 09:33 General: Appears in no apparent distress. comfortable, slender, well groomed, Behavior ss is calm, cooperative, quiet, Denies fever, feeling ill. Pain: Denies pain. Neuro: Level of Consciousness is awake, alert, Oriented to person. Cardiovascular: Capillary refill < 3 seconds is brisk in bilateral fingers. Respiratory: Airway is patent Respiratory effort is even, Respiratory pattern is regular, symmetrical. GI: Abdomen is non-distended, Patient currently denies abdominal pain, diarrhea, nausea, vomiting. : No signs and/or symptoms were reported regarding the genitourinary system. EENT: Oral mucosa is dry. Derm: Skin is intact, is fragile, is thin, with poor turgor Skin is pink, warm \T\ dry. normal. Musculoskeletal: 12:17 Reassessment: Patient appears in no apparent distress at this time. Patient and/or ph family updated on plan of care and expected duration. Pain level reassessed. Dr Branch at bedside to speak w/ pt. 13:30 Reassessment: Patient appears in no apparent distress at this time. report given to [facility] staff member who states she will arrange for transportation back home now and call back with an ETA. Pt is to be discharged with [facility] back to nursing facility. 14:12 Reassessment: Patient appears in no apparent distress at this time. Patient and/or ph family updated on plan of care and expected duration. Pain level reassessed. residential staff at bedside, pt d/c to [facility]. Vital Signs: 09:33 BP 116 / 84; Pulse 82; Resp 26; Temp 97.3(A); Pulse Ox 100% on R/A; Pain 0/10; ss 10:22 BP 104 / 69; Pulse 81; Resp 24; ss 11:17 BP 97 / 63; Pulse 83; Resp 22; Pulse Ox 98% on R/A; ph 12:30 BP 112 / 66; Pulse 80; Resp 18; Pulse Ox 100% on R/A; ph 14:13 BP 123 / 76; Pulse 79; Resp 18; Pulse Ox 100% on R/A; ph ED Course: :33 Patient arrived in ED. ds1 09:33 Katja Mariano, ARIANE is Primary Nurse. 09:33 Jorge Zapata PA is PHCP. jr8 09:33 Freddy Sanchez MD is Attending Physician. jr8 09:33 Patient has correct armband on for positive identification. Bed in low position. ss 09:33 Straight cath inserted, using sterile technique, 16 Fr. Specimen obtained. Patient ss tolerated well. 09:35 Triage completed. ss 09:37 Arm band placed on right wrist. ss 10:06 XRAY Chest (1 view) In Process Unspecified. EDMS 10:15 Inserted saline lock: 22 gauge in right antecubital area, using aseptic technique. ss Blood collected. 11:33 Alex Branch DO is Hospitalizing Provider. jr8 13:30 No provider procedures requiring assistance completed. ss 14:12 IV discontinued, intact, bleeding controlled, No redness/swelling at site. Pressure ph dressing applied. Administered Medications: 11:38 Drug: Rocephin 1 grams Route: IV; Rate: calculated rate; Site: right antecubital; hb 11:39 Follow up: IV Status: Completed infusion; IV Intake: 10ml hb 11:39 Drug: D5-1/2 NS 1000 ml Route: IV; Rate: 100 ml/hr; Site: right antecubital; hb 14:13 Follow up: Response: No adverse reaction; IV Status: Completed infusion ph Intake: 11:39 IV: 10ml; Total: 10ml. hb Outcome: 11:34 Decision to Hospitalize by Provider. jr8 13:22 Discharge ordered by MD. jr8 13:30 Condition: stable ss 13:30 Discharge instructions given to alf, Instructed on discharge instructions, follow up and referral plans. medication usage, Demonstrated understanding of instructions, follow-up care, Prescriptions given X 1. 14:12 Discharged to alf. ph 14:14 Patient left the ED. ph Signatures: Dispatcher [employer] EDSC BowersBrittni ds1 Katja Mariano RN RN Jorge Zapata PA PA jr8 Yolande Singleton RN RN Amalia Navas RN RN hb Corrections: (The following items were deleted from the chart) 10:23 09:33 Pulse Ox 100% RA; Temp 97.3F Axillary; Pain 0/10; ss ss
--- NOTE | 2020-12-01 11:35 | EDPHYS ---
Physician Documentation [facility] Name: Mica Christopher Age: 80 yrs Sex: Female : 1940 Arrival Date: 12/01/2020 Time: 09:33 Bed 4 Private MD: ED Physician Freddy Sanchez HPI: 12/01 09:37 This 80 yrs old Female presents to ER via EMS with complaints of low blood jr8 pressure. 09:37 Onset: The symptoms/episode began/occurred suddenly, today. Associated signs and jr8 symptoms: Pertinent positives: The patient does not have any pertinent positive signs or symptoms associated with pediatric illness. Patient has no complaints upon ED arrival. Patient is from [facility]. Call was placed to EMS for low blood pressure with [place] staff. 70/40. Upon EMS arrival her SBP 104. Pt is AAOx3 upon arrival stating she has no pain and that her appetite just isn't very good over past week. She reports stomach pain earlier that is "upside down" but is not any longer. . Historical: - Allergies: 09:37 PENICILLINS; ss - PMHx: 09:37 COPD; CVA; AAA; Cirrhosis; scoliosis; Hyperlipidemia; UTI; Depression; Insomnia; GERD; ss Atrial Fib; - Immunization history:: Adult Immunizations unknown. - Social history:: Smoking status: Patient denies any tobacco usage or history of. ROS: 09:39 Cardiovascular: Negative for chest pain, palpitations, and edema, Respiratory: Negative jr8 for shortness of breath, cough, wheezing, and pleuritic chest pain. 09:39 MS/extremity: Positive for abrasion, of the right foot. 09:39 Neuro: Positive for weakness. 09:40 Neuro: Positive for decreased appetite . jr8 Exam: 09:41 Chest/axilla: Exam negative for Inspection: normal, Palpation: is normal, Axilla: are jr8 normal. 09:41 Cardiovascular: Rate: Rhythm: regular, Pulses: Pulses are 1+ in right radial artery, right dorsalis pedis artery, left radial artery and left dorsalis pedis artery. Heart sounds: normal, Edema: is not appreciated. 09:41 Respiratory: the patient does not display signs of respiratory distress. 09:41 Abdomen/GI: Inspection: abdomen appears normal, Bowel sounds: normal, in all quadrants. 09:41 Musculoskeletal/extremity: Extremities: grossly normal except: noted in the right foot: abrasion. 09:41 Neuro: Orientation: to person, place \\T\\ time. Mentation: responsive to voice able to follow commands. 11:34 Skin: Warm, dry with normal turgor. Normal color with no rashes, no lesions, and no jr8 evidence of cellulitis. Vital Signs: 09:33 BP 116 / 84; Pulse 82; Resp 26; Temp 97.3(A); Pulse Ox 100% on R/A; Pain 0/10; ss 10:22 BP 104 / 69; Pulse 81; Resp 24; ss 11:17 BP 97 / 63; Pulse 83; Resp 22; Pulse Ox 98% on R/A; ph 12:30 BP 112 / 66; Pulse 80; Resp 18; Pulse Ox 100% on R/A; ph 14:13 BP 123 / 76; Pulse 79; Resp 18; Pulse Ox 100% on R/A; ph MDM: 09:33 Patient medically screened. jr8 09:43 Data reviewed: vital signs, nurses notes, lab test result(s), EKG, radiologic studies. jr8 11:33 Data interpreted: Pulse oximetry: on room air is 98 %. Interpretation: normal. jr8 Counseling: I had a detailed discussion with the patient and/or guardian regarding: the historical points, exam findings, and any diagnostic results supporting the discharge/admit diagnosis, lab results, radiology results, the need for further work-up and treatment in the hospital. 13:22 ED course: After Dr. Branch spoke with family about condition it was found by family jr8 that this has been going on for at least the past couple of weeks. Family wishes to make her DNR and put her on Hospice. automotive services manager team initiated with [facility] and are willing to see her today at [place]. Will d/c back to [place] on Abx for UTI. 12/01 09:36 Order name: Basic Metabolic Panel [facility] 12/01 09:36 Order name: CBC with Diff [facility] 12/01 09:36 Order name: LFT's; Complete Time: 11:26 [facility] 12/01 09:36 Order name: Magnesium; Complete Time: 11:26 [facility] 12/01 09:36 Order name: Urine Microscopic Only; Complete Time: 12:32 [facility] 12/01 09:37 Order name: Basic Metabolic Panel; Complete Time: 11:26 EDMS 12/01 09:36 Order name: XRAY Chest (1 view); Complete Time: 10:43 jr8 12/01 10:52 Order name: Urine Dipstick--Ancillary (enter results); Complete Time: 10:57 hb 12/01 11:06 Order name: Manual Differential EDMS 12/01 12:26 Order name: Urine Culture EDTX 12/01 12:34 Order name: SARS-COV-2 RT PCR; Complete Time: 12:53 EDMS 12/01 09:36 Order name: EKG; Complete Time: 09:37 jr8 12/01 09:36 Order name: Cardiac monitoring; Complete Time: 10:40 jr8 12/01 09:36 Order name: EKG - Nurse/Tech; Complete Time: 10:40 jr8 12/01 09:36 Order name: IV Saline Lock; Complete Time: 10:40 jr8 12/01 09:36 Order name: Labs collected and sent; Complete Time: 10:40 jr8 12/01 09:36 Order name: O2 Per Protocol; Complete Time: 10:40 jr8 12/01 09:36 Order name: O2 Sat Monitoring; Complete Time: 10:39 jr8 12/01 09:36 Order name: Urine Dipstick-Ancillary (obtain specimen); Complete Time: 10:51 jr8 12/01 09:36 Order name: Straight Cath - Urine; Complete Time: 10:51 jr8 Administered Medications: 11:38 Drug: Rocephin 1 grams Route: IV; Rate: calculated rate; Site: right antecubital; hb 11:39 Follow up: IV Status: Completed infusion; IV Intake: 10ml hb 11:39 Drug: D5-1/2 NS 1000 ml Route: IV; Rate: 100 ml/hr; Site: right antecubital; hb 14:13 Follow up: Response: No adverse reaction; IV Status: Completed infusion ph Disposition: 22:16 Co-signature as Attending Physician, Freddy Sanchez MD I agree with the assessment and kdr plan of care. Disposition: 12/01/20 13:22 Discharged to [facility]. Impression: Adult failure to thrive, Dehydration, Hypernatremia, Acute kidney failure, Urinary tract infection, site not specified. - Condition is Stable. - Discharge Instructions: Dehydration, Adult, Urinary Tract Infection, Adult, Malnutrition. - Prescriptions for Macrobid 100 mg Oral Capsule - take 1 capsule by ORAL route every 12 hours for 7 days; 14 capsule. - Medication Reconciliation Form, Thank You Letter, Antibiotic Education, Prescription Opioid Use form. - Follow up: Private Physician; When: As needed; Reason: Recheck today's complaints, Continuance of care, Re-evaluation by your physician. - Problem is new. - Symptoms are unchanged. Signatures: Dispatcher [employer] [facility] Freddy Sanchez MD MD [facility] Katja Mariano RN RN ss Jorge Zapata PA PA jr8 Yolande Singleton RN RN Amalia Navas RN RN Corrections: (The following items were deleted from the chart) 09:51 09:37 Patient is from [facility]. Call was placed to EMS for low blood jr8 pressure with [place] staff. 70/40. Upon EMS arrival her SBP 104. Pt is AAOx3 upon arrival stating she has no pain and that her appetite just isn't very good over past week. . jr8 11:07 10:38 CBC Smear Scan ordered. [facility] EDTX 11:39 11:34 Hospitalization Ordered by Alex Branch DO for Inpatient Admission. Preliminary jr8 diagnosis is Hypernatremia; Dehydration; Urinary tract infection, site not specified. Bed requested for Telemetry/MedSurg (Inpatient). Status is Inpatient Admission. Condition is Stable. Problem is new. Symptoms are unchanged. jr8 11:56 11:43 CORONAVIRUS+MR.LAB.BRZ ordered. [facility] EDTX 13:21 11:39 12/01/2020 11:34 Hospitalization Ordered by Alex Branch DO for Inpatient jr8 Admission. Preliminary diagnosis is Hypernatremia; Dehydration; Urinary tract infection, site not specified; Acute kidney failure. Bed requested for Telemetry/MedSurg (Inpatient). Status is Inpatient Admission. Condition is Stable. Problem is new. Symptoms are unchanged. jr8 14:14 13:22 12/01/2020 13:22 Discharged to [facility]. Impression: Adult failure to thrive; ph Dehydration; Hypernatremia; Acute kidney failure; Urinary tract infection, site not specified. Condition is Stable. Forms are Medication Reconciliation Form, Thank You Letter, Antibiotic Education, Prescription Opioid Use. Follow up: Private Physician; When: As needed; Reason: Recheck today's complaints, Continuance of care, Re-evaluation by your physician. Problem is new. Symptoms are unchanged. jr8
[2020-12-01] MEDS ORDERED: CEFTRIAXONE/SWI 1gm 1 GM/10 ML SYR ONE (11:51)
[2020-12-01] MEDS ORDERED: D5 0.45 NS 1,000 ML IV ONE (11:52)
[2020-12-01 12:22] LABS: Urine Bacteria 20-50 /HPF (<20)
[2020-12-01 12:23] LABS: Urine Amorphous Sediment 2+ /HPF (NONE SEEN); Urine Mucus 1+ /HPF (NONE SEEN); Urine Urothelial Cells <5 /HPF (NONE SEEN)
[2020-12-01 12:24] LABS: Urine Coarse Granular Casts 0-5 /LPF (NONE SEEN)
--- NOTE | 2020-12-01 12:41 | P.CNS ---
Date of Consult: 12/01/20 Reason for Consult: ED Evaluation Requesting Physician: Jamie Zapata Primary Care Provider: [facility] Chief Complaint: Failure to thrive History of Present Illness: 80-year-old female from the care home presented with failure to thrive. Patient with underlying history of hypertension, chronic atrial fibrillation not on chronic anti coagulation therapy, advanced dementia, hyperli pidemia. Patient presented to the emergency room after care home noted low blood pressure. Some of the information came from the ER physician. I was able to speak in contact with the sister who makes decisions for the patient. Sister reports patient has not been eating or drinking over the past 2 weeks. Her overall health has declined it. Patient takes multiple medications including Lasix, digoxin, sertraline, Lipitor, and Megace. Patient not able to provide an adequate history. In the ER patient was evaluated. Blood pressures around 95 systolic. Patient appears medically stable. Patient not in any significant distress. Patient appears dehydrated. On lab sodium level 173, potassium 3.7. Chloride 138. BN of 50, creatinine 2.13 with a GFR 22. Glucose 85. White count 10.7. Hemoglobin 11.4. Chest x-ray unremarkable. Urinalysis unremarkable for infection. I was asked to evaluate patient for possible admission. When I spoke to the sister in detail. Advanced directives readdressed in detail. Patient is do not resuscitate. Sister reports patient would not want to be on any type of life support. A discussion about hospice was addressed in detail. Sister is interes chung in hospice for the patient. Allergies Penicillins Allergy (Verified 06/15/19 21:04) Rash Home Medications: Amox/Clavulanate [Augmentin 500-125 mg Tab] 500 mg PO BID #14 tab 06/16/19 - Past Medical/Surgical History Diabetic: No -: Hypertension -: COPD -: Chronic atrial fibrillation not on chronic anti coagulation therapy -: Tobacco abuse -: Depression with anxiety -: Vascular dementia -: Chronic pain -: Hysterectomy -: Cholecystectomy -: Carpal tunnel Psychosocial/ Personal History: Patient lives in care home. - Family History Mother Medical History: Cancer Notes: breast - Social History Smoking Status: Former smoker Alcohol use: No CD- Drugs: No Caffeine use: Yes Place of Res[place] Review of Systems is unable to be obtained Physical Examination General: Alert, Cooperative, Demented (Advanced dementia) HEENT: Atraumatic, PERRLA, Other (Dry mucous membranes) Neck: Supple Respiratory: Clear to auscultation bilaterally, Normal air movement Cardiovascular: Normal pulses, Regular rate/rhythm Gastrointestinal: Normal bowel sounds, Soft and benign, Non-distended, No tenderness, No masses, No rebound, No guarding Integumentary: Other (No ulcers identified to the skin. Dry skin throughout. Some muscle wasting. Poor circulation to the extremities.) Neurological: Normal speech, Normal strength at 5/5 x4 extr, Normal tone, Dementia (Advanced dementia noted.) Laboratory Data (last 24 hrs) 12/01/20 10:15: WBC 10.70, Hgb 11.4 L, Hct 35.5 L, Plt Count 116 L 12/01/20 10:15: Sodium 173 H*, Potassium 3.7, BUN 50 H, Creatinine 2.13 H, Glucose 85, Magnesium 1.8, Total Bilirubin 0.9, AST 53 H, ALT 27, Alkaline Phosphatase 288 H Conclusions/Impression: Impression: Failure to thrive with noted acute renal failure complicated with hypernatremia, severe dehydration, severe protein malnutrition, and advanced dementia Chronic atrial fibrillation not on chronic anticoagulation Depression with anxiety Hyperlipidemia COPD Plan: Case discussed with Sister Hannah Danielle who is responsible for the patient. Adv anced care planning addressed in detail as well. Patient is do not resuscitate. Patient has been declining in health. In fact patient has not been eating or drinking over the past 2 weeks. She has been made aware of this. After long discussion hospice was addressed about the possibility for this patient. Questions about hospice was answered. Sister would like hospice to be arranged at the care home. Therefore no admission or intervention is needed at this time. Spoke with geriatric social worker to help arrange for the patient to return back to the care home with [id number] DNR in place and with hospice in place. Social work will reach out to the sister to help this process. This was relayed with to the ER provider who agrees with plan of care. Patient will be discharge back to care home with DNR in place and with hospice arranged. Time Spent Managing Pts care (In Minutes): 55
[2020-12-01 14:20] VITALS: TEMP 97.3
[2020-12-01 14:23] VITALS: O2SAT 100
[2020-12-01 14:25] VITALS: BP 123/76
== END 2020-12-01 14:14 ==
LOC: ER 09:32
DX: R62.7 Adult failure to thrive (principal); N17.9 Acute kidney failure, unspecified; E43 Unspecified severe protein-calorie malnutrition; E87.0 Hyperosmolality and hypernatremia; E86.0 Dehydration; I48.20 Chronic atrial fibrillation, unspecified; F41.8 Other specified anxiety disorders; E78.5 Hyperlipidemia, unspecified; J44.9 Chronic obstructive pulmonary disease, unspecified; Z87.891 Personal history of nicotine dependence; I10 Essential (primary) hypertension; F01.50 Vascular dementia, unspecified severity, without behavioral disturbance, psychotic disturbance, mood disturbance, and anxiety; G89.29 Other chronic pain; Z66 Do not resuscitate; Z86.73 Personal history of transient ischemic attack (TIA), and cerebral infarction without residual deficits; K74.60 Unspecified cirrhosis of liver; F32.9 Major depressive disorder, single episode, unspecified; K21.9 Gastro-esophageal reflux disease without esophagitis; M41.9 Scoliosis, unspecified; G47.00 Insomnia, unspecified; Z20.822 Contact with and (suspected) exposure to COVID-19
CPT/HCPCS: 96361; 93005; 85025; 87086; 80048; 36415; 83735; 80076; 71045; 51702; 96374; 99284; U0003; J0696; J7799; 81003; 81015; 87088